=== PATIENT | female | born 1995 | race Caucasian/White ===

== ENCOUNTER 2017-01-17 17:53 | Emergency (ER) | payer MEDICAID ==
[~2017-01-17] VITALS: Ht 160 cm; Wt 55.0 kg
[~2017-01-17 17:53] MED LIST: FLUC150T PO; LOES1TAB2 PO
[2017-01-17 18:10] VITALS: BP 119/63; PULSE 88; RESP 16; TEMP 99; O2SAT 98
[2017-01-17] MEDS ORDERED: Birth control pill PO (18:12)
[2017-01-17 18:15] VITALS: O2SAT 98
[2017-01-17] MEDS ORDERED: SODIUM CHLOR 0.9% 1000 ML INJ 1,000 ML IV SCH (18:17)
[2017-01-17] MEDS ORDERED: SODIUM CHLORIDE 0.9% FLUSH 10 ML FLUSH IV FLUSH PRN (18:30)
[2017-01-17] MEDS ORDERED: PANTOPRAZOLE SODIUM 40 MG VIAL IVP ONE (18:30)
[2017-01-17] MEDS ORDERED: ONDANSETRON HCL 4 MG/2 ML VIAL IVP ONE (18:30)
[2017-01-17 18:37] LABS: BLOOD, URINE TRACE (NEG); GLUCOSE,URINE NEG (NEG); KETONE, URINE NEG (NEG); NITRITE,URINE NEG (NEG); PH, URINE 6.5 (5.0-8.5)
[2017-01-17 18:37] LABS: AUTOMATED NEUTROPHIL # 3.4 TH/MM3 (1.8-7.7); BASOPHIL % 0.4 % (0.0-2.0); EOSINOPHIL % 0.4 % (0.0-4.0); HEMATOCRIT 37.3 % (35.0-46.0); HEMO FLAGS DIFF FINAL; LYMPH % 18.1 % (9.0-44.0); LYMPHOCYTE # 0.8 TH/MM3 (1.0-4.8); MEAN CELL VOLUME 87.6 FL (80.0-100.0); MEAN CORPUSCULAR HGB CONC 34.3 % (32.0-36.0); MONO % 7.7 % (0.0-8.0); NEUT % 73.4 % (16.0-70.0); PLATELET COUNT 185 TH/MM3 (150-450); RED BLOOD COUNT 4.26 MIL/MM3 (4.00-5.30); RED CELL DISTRIBUTION WIDTH 12.1 % (11.6-17.2); WHITE BLOOD COUNT 4.6 TH/MM3 (4.0-11.0)
--- NOTE | 2017-01-17 18:37 | PD ---
HPI Chief Complaint: GI Complaint Time Seen by Provider: 18:12 Travel History International Travel<30 days: No Contact w/Intl Traveler<30days: No Traveled to known affect area: No History of Present Illness HPI 21-year-old female here for evaluation of nausea, vomiting, diarrhea, abdominal pain. States having going on for last 2 days. Patient has had several episodes of vomiting and diarrhea which are nonbloody. LMP was 3 weeks ago. She denies vaginal bleeding or discharge. No urinary symptoms. No fevers or chills. Abdominal pain is epigastric, sharp, no modifying factors. No history of abdominal surgeries. No sick contacts. No recent travel. Patient reports that her symptoms feel flulike. She states that she had a slight cough prior to onset of gastroenteritis type symptoms. [facility] Past Medical History Medical History: Denies Significant Hx Diminished Hearing: No Tetanus Vaccination: > 5 Years Influenza Vaccination: No ?: Not LMP: 3 weeks ago Past Surgical History Surgical History: No Previous Surgery Social History Alcohol Use: Yes (Social) Tobacco Use: No Substance Use: No Allergies-Medications (Allergen,Severity, Reaction): Coded Allergies: No Known Allergies (Unverified , 01/17/17) Reported Meds & Prescriptions Reported Meds & Active Scripts Active Reported [ control pill] 1 Tab PO DAILY Review of Systems Except as stated in HPI: all other systems reviewed are Neg Physical Exam Narrative GENERAL: Well-developed, well-nourished, comfortable, no apparent distress. SKIN: Focused skin assessment warm/dry. No rash. HEAD: Atraumatic. Normocephalic. EYES: Pupils equal and round. No scleral icterus. No injection or drainage. ENT: No nasal bleeding or discharge. Mucous membranes pink and moist. CARDIOVASCULAR: Regular rate and rhythm. RESPIRATORY: No accessory muscle use. Clear to auscultation. Breath sounds equal bilaterally. GASTROINTESTINAL: Abdomen soft, nondistended. Mild epigastric tenderness without peritoneal signs. Rest of abdomen is soft and nontender. Negative Osorio sign. No McBurney's point tenderness. Normal bowel sounds. MUSCULOSKELETAL: No obvious deformities. No clubbing. No cyanosis. No edema. NEUROLOGICAL: Awake and alert. No obvious cranial nerve deficits. Motor grossly within normal limits. Normal speech. PSYCHIATRIC: Appropriate mood and affect; insight and judgment normal. Data Data Last Documented VS Vital Signs Date Time Temp Pulse Resp B/P Pulse Ox O2 Delivery O2 Flow Rate FiO2 01/17/17 20:54 83 18 110/57 99 Room Air 01/17/17 18:10 99.0 Orders Beta Hcg (Quant/Titer) (01/17/17 18:17) Complete Blood Count With Diff (01/17/17 18:17) Comprehensive Metabolic Panel (01/17/17 18:17) Lipase (01/17/17 18:17) Urinalysis - C+S If Indicated (01/17/17 18:17) Iv Access Insert/Monitor (01/17/17 18:17) Ecg Monitoring (01/17/17 18:17) Oximetry (01/17/17 18:17) Ondansetron Inj (Zofran Inj) (01/17/17 18:30) Pantoprazole Inj (Protonix Inj) (01/17/17 18:30) Sodium Chlor 0.9% 1000 Ml Inj (Ns 1000 M (01/17/17 18:17) Sodium Chloride 0.9% Flush (Ns Flush) (01/17/17 18:30) Influenzae A/B Antigen (01/17/17 18:35) Urine Culture (01/17/17 18:20) Ct Abd/Pel W Iv Contrast(Rout) (01/17/17 19:17) Ceftriaxone Inj (Rocephin Inj) (01/17/17 19:30) Iohexol 350 Inj (Omnipaque 350 Inj) (01/17/17 20:46) Labs Laboratory Tests Test 01/17/17 01/17/17 18:20 18:25 Urine Color YELLOW Urine Turbidity SLIGHT Urine pH 6.5 Urine Specific Dorothy 1.015 Urine Protein NEG mg/dL Urine Glucose (UA) NEG mg/dL Urine Ketones NEG mg/dL Urine Occult Blood TRACE Urine Nitrite NEG Urine Bilirubin NEG Urine Leukocyte Esterase TRACE Urine RBC 0-3 /hpf Urine WBC 9-14 /hpf Urine WBC Clumps FEW Urine Squamous Epithelial > 8 /hpf Cells Urine Bacteria OCC /hpf Urine Mucus FEW /lpf Microscopic Urinalysis Comment CULTURE INDICATED White Blood Count 4.6 TH/MM3 Red Blood Count 4.26 MIL/MM3 Hemoglobin 12.8 GM/DL Hematocrit 37.3 % Mean Corpuscular Volume 87.6 FL Mean Corpuscular Hemoglobin 30.0 PG Mean Corpuscular Hemoglobin 34.3 % Concent Red Cell Distribution Width 12.1 % Platelet Count 185 TH/MM3 Mean Platelet Volume 7.6 FL Neutrophils (%) (Auto) 73.4 % Lymphocytes (%) (Auto) 18.1 % Monocytes (%) (Auto) 7.7 % Eosinophils (%) (Auto) 0.4 % Basophils (%) (Auto) 0.4 % Neutrophils # (Auto) 3.4 TH/MM3 Lymphocytes # (Auto) 0.8 TH/MM3 Monocytes # (Auto) 0.4 TH/MM3 Eosinophils # (Auto) 0.0 TH/MM3 Basophils # (Auto) 0.0 TH/MM3 CBC Comment DIFF FINAL Differential Comment Sodium Level 138 MEQ/L Potassium Level 3.5 MEQ/L Chloride Level 105 MEQ/L Carbon Dioxide Level 25.4 MEQ/L Anion Gap 8 MEQ/L Blood Urea Nitrogen 12 MG/DL Creatinine 0.97 MG/DL Estimat Glomerular Filtration 74 ML/MIN Rate Random Glucose 90 MG/DL Calcium Level 8.6 MG/DL Total Bilirubin 0.5 MG/DL Aspartate Amino Transf 15 U/L (AST/SGOT) Alanine Aminotransferase 13 U/L (ALT/SGPT) Alkaline Phosphatase 40 U/L Total Protein 6.7 GM/DL Albumin 3.2 GM/DL Lipase 128 U/L Human Chorionic Gonadotropin, LESS THAN 1 Quant MIU/ML MDM Medical Decision Making Medical Screen Exam Complete: Yes Emergency Medical Condition: Yes Differential Diagnosis Gastroenteritis, gastritis, peptic ulcer disease, metabolic abnormality, pancreatitis, hepatobiliary disease, appendicitis unlikely Narrative Course Initial vital signs show heart rate 80, blood pressure 119/63, pulse ox 98% on room air, oral temp of 99F. CBC is unremarkable. CMP is unremarkable. Lipase is 128. Beta hCG is negative. UA shows trace blood, trace leukocyte esterase, 9-14 wbc's, few wbc clumps, occasional bacteria, greater than 8 epithelial cells, few mucus, culture indicated. At this point patient was made aware of all findings. She is having some epigastric discomfort as well as periumbilical discomfort and tenderness. She denies vaginal discharge, and prefers not to have a pelvic exam. Given her periumbilical tenderness, CT abdomen pelvis ordered to rule out appendicitis. She was given a dose of IV Rocephin for her UA findings. CT abdomen pelvis: No acute inflammatory process. On reassessment the patient is sitting comfortably on the stretcher. She states she is feeling a lot better. She is stable for discharge home with outpatient follow-up with a primary care physician this week. She'll be started on Macrobid for her UA findings. She was informed on when to return to the emergency department. She verbalizes understanding and agreement with plan. Diagnosis Primary Impression: Gastroenteritis Additional Impression: UTI (urinary tract infection) Qualified Code: N39.0 - Urinary tract infection without hematuria, site unspecified Referrals: Primary Care Physician 3 days Additional Instructions: Follow-up with a primary care physician this week. See hydrated with plenty of fluids. Return to the emergency department for worsening symptoms or any other concerns. Scripts Nitrofurantoin Monohydrate Macrocrystals (Macrobid)100 Mg [id number] Mg PO BID 5 Days Ref 0 Prov:Gilbert Bal MD 01/17/17 Ondansetron Odt (Zofran Odt)4 Mg Tab4 Mg SL Q8HR PRN (Nausea/Vomiting) #15 TAB Ref 0 Prov:Gilbert Bal MD 01/17/17 Disposition: 01 DISCHARGE HOME Condition: Stable Gilbert Bal MD Jan 17, 2017 18:37
[2017-01-17 18:48] LABS: URINE COLOR YELLOW (YELLW/STRAW)
[2017-01-17 18:49] LABS: MUCUS URINE FEW /lpf (OCC); RBC, URINE 0-3 /hpf (0-3); SQUAMOUS EPITHELIAL CELL URINE > 8 /hpf (0-5)
[2017-01-17 18:50] LABS: BACTERIA, URINE OCC /hpf; COMMENT (UR) CULTURE INDICATED; CULTURE IF INDICATED CULTURE INDICATED
[2017-01-17 18:54] LABS: CHLORIDE 105 MEQ/L (98-107); POTASSIUM 3.5 MEQ/L (3.5-5.1); SODIUM (NA) 138 MEQ/L (136-145)
[2017-01-17 18:58] LABS: ANION GAP 8 MEQ/L (5-15); BICARBONATE 25.4 MEQ/L (21.0-32.0); BLOOD UREA NITROGEN 12 MG/DL (7-18)
[2017-01-17 19:00] LABS: ALT (GPT) 13 U/L (9-42); AST (GOT) 15 U/L (16-38); GLOMERULAR FILTRATION RATE 74 ML/MIN (>89)
[2017-01-17 19:02] LABS: TOTAL BILIRUBIN ADULT 0.5 MG/DL (0.2-1.0)
[2017-01-17 19:03] LABS: ALKALINE PHOSPHATASE 40 U/L (45-117)
[2017-01-17 19:05] LABS: BETA HCG QUANT LESS THAN 1 MIU/ML (0-5)
[2017-01-17 19:29] VITALS: BP 127/71; PULSE 84; RESP 18; O2SAT 100
[2017-01-17] MEDS ORDERED: cefTRIAXone INJ 1,000 MG in SODIUM CHLORIDE 0.9% INJ 100 ML IV ONE (19:30)
[2017-01-17] MEDS ORDERED: IOHEXOL 350 MG/ML 10 ML VIAL (for RAD DIAG) IV ONE (20:46)
[2017-01-17 20:54] VITALS: BP 110/57; PULSE 83; RESP 18; O2SAT 99
--- NOTE | 2017-01-17 20:58 | RADRPT ---
EXAM DATE/TIME: 01/17/2017 20:26 [facility] COMPARISON: No previous studies available for comparison. INDICATIONS : Epigastric pain. Nausea. Vomiting. Diarrhea. IV CONTRAST: 100 cc Omnipaque 350 (iohexol) IV ORAL CONTRAST: No oral contrast ingested. RADIATION DOSE: 5.14 CTDIvol (mGy) MEDICAL HISTORY : None SURGICAL HISTORY : None. ENCOUNTER: Initial ACUITY: 3 days PAIN SCALE: 5/10 LOCATION: Bilateral upper quadrant TECHNIQUE: Volumetric scanning of the abdomen and pelvis was performed. Using automated exposure control and ad justment of the mA and/or kV according to patient size, radiation dose was kept as low as reasonably achievable to obtain optimal diagnostic quality images. DICOM format image data is available electro nically for review and comparison. FINDINGS: LOWER LUNGS: The visualized lower lungs are clear. LIVER: Homogeneous density without lesion. There is no dilation of the biliary tree. No calcified gallston es. SPLEEN: Normal size without lesion. PANCREAS: Within normal limits. KIDNEYS: Normal in size and shape. There is no mass, stone or hydronephrosis. ADRENAL GLANDS: Within normal limits. VASCULAR: There is no aortic aneurysm. BOWEL/MESENTERY: The stomach, small bowel, and colon demonstrate no acute abnormality. There is no free intraperitone al air or fluid. ABDOMINAL WALL: Within normal limits. RETROPERITONEUM: There is no lymphadenopathy. BLADDER: No wall thickening or mass. REPRODUCTIVE: Within normal limits. INGUINAL: There is no lymphadenopathy or hernia. MUSCULOSKELETAL: Within normal limits for patient age. CONCLUSION: No acute inflammatory process. Alex Mendoza MD on January 17, 2017 at 20:51 Board Certified Radiologist. This report was verified electronically.
[2017-01-17] MEDS ORDERED: MACR100C2 PO (21:05)
[2017-01-17] MEDS ORDERED: ZOFR4TAB3 SL (21:05)
== END 2017-01-17 21:43 | disposition home or self-care (01) ==
LOC: PHED 17:53
DX: K52.9 Noninfective gastroenteritis and colitis, unspecified (principal); N39.0 Urinary tract infection, site not specified; B96.89 Other specified bacterial agents as the cause of diseases classified elsewhere
CPT/HCPCS: 74177; 80053; 81001; 83690; 84702; 85025; 87086; 87804; 96361; 96365; 96375; 99285; C9113; J0696; J2405; J7030; Q9967

== ENCOUNTER 2017-09-06 16:33 | Emergency (ER) | payer MEDICAID, OTHER ==
[~2017-09-06] VITALS: Ht 160 cm; Wt 53.0 kg
[~2017-09-06 16:33] MED LIST changes: +Birth control pill PO; -FLUC150T PO; -LOES1TAB2 PO; +NORE1TAB43 PO
[2017-09-06 16:52] VITALS: BP 127/81; PULSE 121; RESP 16; TEMP 101.3; O2SAT 100
[2017-09-06] MEDS ORDERED: ACETAMINOPHEN 325 MG TAB PO ONE (17:00)
[2017-09-06] MEDS ORDERED: OSEL75 PO (18:07)
[2017-09-06] MEDS ORDERED: MAGICADU2 SWISH-SWAL (18:07)
--- NOTE | 2017-09-06 18:11 | PD ---
HPI Chief Complaint: Cold / Flu Symptoms Time Seen by Provider: 17:17 Travel History International Travel<30 days: No Contact w/Intl Traveler<30days: No Traveled to known affect area: No History of Present Illness HPI 22-year-old female that presents to the ED for evaluation of fever and cold like symptoms. Per patient the symptoms started yesterday. Per patient she had a fever and body aches as well as sore throat and some congestion but it became more severe today. His been taking [id number]-[id number] remedies with minimal relief. She has any sick contacts. She denies taking the flu shot this year. No recent travel. No chest pain or shortness of breath. She states having body aches all over the body. Per patient the pain feels significant. Per patient the pain is 8 out of 10 and everywhere. Denies any urinary or bowel movement issues. No numbness, tilling, weakness. No allergies to medication. PFSH Past Medical History Medical History: Denies Significant Hx Diminished Hearing: No Immunizations Current: Yes Tetanus Vaccination: Unknown ?: Not Past Surgical History Surgical History: No Previous Surgery Social History Alcohol Use: No Tobacco Use: No Substance Use: No Allergies-Medications (Allergen,Severity, Reaction): Coded Allergies: No Known Allergies (Unverified Adverse Reaction, Unknown, 09/06/17) Reported Meds & Prescriptions Reported Meds & Active Scripts Active Magic Mouthwash Adult Liq (Multi-Ingredient Mouthwash/Gargle) 120 Ml Susp 5 Ml SWISH-SWAL ACHS Each 5mL contains: Nystatin 200,000units, Diphenhydramine 4.25mg, Viscous Lidocaine 10mg, Carter syrup 0.8 mL Tamiflu (Oseltamivir Phosphate) 75 Mg Cap 75 Mg PO BID 5 Days Microgestin 1/20 (Norethindrone-Ethinyl Estradiol) 1-20 Mg-Mcg Tab 1 Tab PO DAILY Review of Systems Except as stated in HPI: all other systems reviewed are Neg Physical Exam Narrative GENERAL: Well-nourished, well-developed patient in no apparent distress. SKIN: Warm and dry. HEAD: Atraumatic. Normocephalic. EYES: Pupils equal and round reactive to light and accommodation. No scleral icterus. No injection or drainage. ENT: No nasal bleeding or discharge. Mucous membranes pink and moist. TMs are clear with no sign of infection or perforation. No mastoid tenderness. Ear canals are intact bilaterally. No lymphadenopathy. Nostril mucosa is red and moist with clear mucus noted. No sinus tenderness to palpation noted. Tonsils are not enlarged or swollen. No ulvua Deviation. Tongue is midline. NECK: Trachea midline. No JVD. No meningeal signs noted CARDIOVASCULAR: Regular rate and rhythm. RESPIRATORY: No accessory muscle use. Clear to auscultation. Breath sounds equal bilaterally. GASTROINTESTINAL: Abdomen soft, non-tender, nondistended. Hepatic and splenic margins not palpable. MUSCULOSKELETAL: Extremities without clubbing, cyanosis, or edema. No obvious deformities. Full range of motion of the upper and lower extremity is bilaterally. 2+ pulses bilaterally. NEUROLOGICAL: Awake and alert. No obvious cranial nerve deficits. Motor grossly within normal limits. Five out of 5 muscle strength in the arms and legs. Normal speech. PSYCHIATRIC: Appropriate mood and affect; insight and judgment normal. Data Data Last Documented VS Vital Signs Date Time Temp Pulse Resp B/P (MAP) Pulse Ox O2 Delivery O2 Flow Rate FiO2 09/06/17 16:52 101.3 121 16 127/81 (96) 100 Orders Orders Acetaminophen (Tylenol) (09/06/17 17:00) Influenzae A/B Antigen (09/06/17 17:21) Ed Discharge Order (09/06/17 18:08) MDM Medical Decision Making Medical Screen Exam Complete: Yes Emergency Medical Condition: Yes Medical Record Reviewed: Yes Interpretation(s) Influenza positive for a Differential Diagnosis Influenza versus tonsillitis versus pharyngitis versus URI Narrative Course 22-year-old female that presents to the ED for evaluation of cold-like symptoms. Patient was properly examined and was found to have signs and symptoms concerning for flu. Influenza test was done and was positive for a. Patient will be treated for this with Tamiflu. Patient was given Tylenol for her fever here. She was told that the symptoms will take some time to improve. I recommend close follow with PCP. See ED worsening symptoms. OTC medicines as needed. Drink lots of fluids. Diagnosis Primary Impression: Influenza A Patient Instructions: General Instructions Additional Instructions: Motrin and Tylenol for pain and fever. You can use [id number]-ipe-coytatr antihistamine as well as well as Mucinex as needed for runny nose and congestion. Cough drops for cough as needed. Drink plenty of fluids. Follow-up with PCP. See ED for worsening symptoms. Med/Other Pt SpecificInfo: Prescription(s) given Scripts Qmeilojs-Vppzewrrbxgzdrw-Ovtkeiudu Liq (Magic Mouthwash Adult Liq) 120 Ml Susp 5 ML SWISH-SWAL ACHS for Mouth sores, #120 ML 0 Refills Each 5mL contains: Nystatin 200,000units, Diphenhydramine 4.25mg, Viscous Lidocaine 10mg, Carter syrup 0.8 mL Prov: Claytno Hart MD 09/06/17 Oseltamivir (Tamiflu) 75 Mg Cap 75 MG PO BID for Mgmt Viral Infection for 5 Days, #10 CAP 0 Refills Prov: Clayton Hart MD 09/06/17 Disposition: 01 DISCHARGE HOME Condition: Stable Benjamin Jackson Sep 06, 2017 18:11
== END 2017-09-06 18:22 | disposition home or self-care (01) ==
LOC: PHEFT 16:33
DX: J10.89 Influenza due to other identified influenza virus with other manifestations (principal); R05 Cough
CPT/HCPCS: 87804; 99283